=== PATIENT | female | born 1970 | race Caucasian/White ===

== ENCOUNTER 2016-08-04 20:10 | Emergency (ER) | payer OTHER ==
[~2016-08-04] VITALS: Ht 160 cm; Wt 63.5 kg
--- NOTE | 2016-08-04 20:24 | NUR ---
Dr. Damon evaluating patient at bedside.
--- NOTE | 2016-08-04 20:24 | NUR ---
PT TAKEN TO BED 4
[2016-08-04 20:27] VITALS: BP 124/79
--- NOTE | 2016-08-04 20:27 | NUR ---
46 Y/O HERE W/C/O ABCESS TO L UPPER BACK R/T ABCESS. DENIES ANY FEVER OR CHILLS. PT STATES HAD THIS ABCESS BEFORE BUT IT CONTINUES TO FORM. ER MD AT BEDSIDE.
[2016-08-04] MEDS ORDERED: LIDOCAINE/EPI 1% 1:100000 20 ML VIAL INJ ONE (20:30)
[2016-08-04] MEDS ORDERED: HYDROcodone/APAP 5/325 MG 1 TAB TAB PO ONE (20:30)
[2016-08-04] MEDS ORDERED: BACITRACIN OINT 500 UNITS/GM PKT TP ONE (20:40)
[2016-08-04 21:09] VITALS: BP 124/79
--- NOTE | 2016-08-04 21:09 | NUR ---
Patient discharged with v/s stable. Written and verbal after care instructions given and explained. Patient alert, oriented and verbalized understanding of instructions. Ambulatory with steady gait. All questions addressed prior to discharge. ID band removed. Patient advised to follow up with PMD OR RETURN TO ER IF CONDITION GETS WORSE. Rx of NORCO, NAPROSYN, AND BACTRIM given. Patient educated on indication of medication including possible reaction and side effects. Opportunity to ask questions provided and answered.
== END 2016-08-04 21:09 | disposition home or self-care (01) ==
LOC: MED 20:10
DX: L02.411 Cutaneous abscess of right axilla (principal); R10.9 Unspecified abdominal pain; Z88.0 Allergy status to penicillin
CPT/HCPCS: 10060; 99283; J2001

== ENCOUNTER 2022-02-14 13:02 | Emergency (ER) | payer BC, OTHER ==
[~2022-02-14] VITALS: Ht 157.5 cm; Wt 75.0 kg
--- NOTE | 2022-02-14 13:06 | NUR ---
AMBULATED TO ER BED 1
[2022-02-14 13:12] VITALS: BP 121/75
--- NOTE | 2022-02-14 13:18 | NUR ---
PT BIB SELF C/O COUGH, SORE THROAT X 3 DAY. PT DENIES N/V/D; SKIN IS INTACT, PINK/WARM/DRY; AAOX4, PERRL, LUNGS CLEAR BL, BREATHING UNLABORED; HR EVEN AND REGULAR. PT DENIES ANY FEVER, CP, SOB, OR COUGH AT THIS TIME; PT STATES 0/10 PAIN AT THIS TIME; VSS; PATIENT POSITIONED FOR COMFORT; HOB ELEVATED; BEDRAILS UP X2; BED DOWN.
[2022-02-14 13:19] VITALS: BP 121/75
[2022-02-14] MEDS ORDERED: MENT7.6L6 PO (13:55)
[2022-02-14] MEDS ORDERED: FLONAS NS (13:55)
[2022-02-14] MEDS ORDERED: PROM118S5 PO (13:55)
--- NOTE | 2022-02-14 14:06 | NUR ---
COLLECTED SHANNAN DIEHL, RAPID STREP AND STREP CULTURE. WALKED TO LAB AT THIS TIME.
--- NOTE | 2022-02-14 14:08 | NUR ---
Patient discharged with v/s stable. Written and verbal after care instructions given FOR UPPER RESPIRATORY INFECTION and explained. Patient alert, oriented and verbalized understanding of instructions. Ambulatory with steady gait. All questions addressed prior to discharge. ID band removed. Patient advised to follow up with PMD. Rx of COUGH DROPS, FLONASE, AND PROMETHAZINE given. Patient educated on indication of medication including possible reaction and side effects. Opportunity to ask questions provided and answered.
== END 2022-02-14 14:07 | disposition home or self-care (01) ==
LOC: MED 13:02
DX: J06.9 Acute upper respiratory infection, unspecified (principal); Z20.822 Contact with and (suspected) exposure to COVID-19; R05.9 Cough, unspecified; R09.81 Nasal congestion; Z88.0 Allergy status to penicillin; Z79.899 Other long term (current) drug therapy
CPT/HCPCS: 87081; 99283

== ENCOUNTER 2022-03-31 08:12 | Emergency (ER) | payer BC ==
[~2022-03-31] VITALS: Ht 159.3 cm; Wt 74.8 kg
[~2022-03-31 08:12] MED LIST: FLONAS NS; MENT7.6L6 PO; PROM118S5 PO
[2022-03-31 08:17] VITALS: BP 125/75
--- NOTE | 2022-03-31 08:21 | NUR ---
PT AMB TO BED 7.
--- NOTE | 2022-03-31 08:35 | NUR ---
pt c/o cough, congestion, fatigue x6 days, currently on tamiflu without any relief.
[2022-03-31] MEDS ORDERED: BENZ150C2 PO (08:56)
--- NOTE | 2022-03-31 09:11 | NUR ---
Patient discharged with v/s stable. Written and verbal after care instructions given and explained. Patient alert, oriented and verbalized understanding of instructions. Ambulatory with steady gait. All questions addressed prior to discharge. ID band removed. Patient advised to follow up with PMD. Rx of benzonatate given. Patient educated on indication of medication including possible reaction and side effects. Opportunity to ask questions provided and answered.
[2022-04-01] MEDS ORDERED: BENZ200C4 PO (14:56)
== END 2022-03-31 09:10 | disposition home or self-care (01) ==
LOC: MED 08:12
DX: J06.9 Acute upper respiratory infection, unspecified (principal); Z20.822 Contact with and (suspected) exposure to COVID-19; Z88.0 Allergy status to penicillin
CPT/HCPCS: 71045; 87426; 87804; 99284; Q0092